=== PATIENT | male | born 1970 | race African-American/Black ===

== ENCOUNTER → 2023-03-25 | Emergency (ER) | payer OTHER ==
[~2023-03-25] VITALS: Ht 172.7 cm; Wt 88.0 kg
[~2023-03-25] MED LIST: CARDURA XL4 MG PO; LOSARTAN-HCTZ1 EAC1 PO
== END | disposition home or self-care (01) ==
LOC: ER 09:36
DX: S83.91XA Sprain of unspecified site of right knee, initial encounter (principal); X58.XXXA Exposure to other specified factors, initial encounter; Y93.89 Activity, other specified; Y92.89 Other specified places as the place of occurrence of the external cause; Y99.9 Unspecified external cause status; M70.51 Other bursitis of knee, right knee; Z88.6 Allergy status to analgesic agent; Z91.013 Allergy to seafood